=== PATIENT | male | born 1990 | race Hispanic/Latino ===

== ENCOUNTER 2019-03-08 19:16 | Emergency (ER) | payer BC ==
[~2019-03-08] VITALS: Ht 177.8 cm; Wt 63.5 kg
[2019-03-09 00:55] VITALS: BP 128/70; TEMP 97.6
== END 2019-03-09 00:55 | disposition home or self-care (01) ==
LOC: ED 19:16
DX: R11.2 Nausea with vomiting, unspecified (principal)
CPT/HCPCS: 80048; 82805; 85027; 87502; 96372; 99283; J1885; J2405